=== PATIENT | male | born 1985 | race Caucasian/White ===

== ENCOUNTER 2019-09-07 13:41 | Emergency (ER) | payer OTHER ==
[~2019-09-07] VITALS: Ht 182.9 cm; Wt 104.3 kg
[2019-09-07 14:34] LABS: ABSOLUTE BASOPHILS 0.1 thou/uL (0.0-0.2); ABSOLUTE EOSINOPHILS 0.1 thou/uL (0.0-0.7); ABSOLUTE LYMPHOCYTES 2.1 thou/uL (0.8-5.3); ABSOLUTE MONOCYTES 0.4 thou/uL (0.0-1.2); ABSOLUTE NEUTROPHILS 4.7 thou/uL (1.6-8.1); BASOPHILS 0.8 %; EOSINOPHILS 1.7 %; HEMATOCRIT 44.6 % (42.0-52.0); HEMOGLOBIN 15.7 gm/dL (14.0-18.0); LYMPHOCYTES 28.6 %; MCH 29.2 pg (26.0-34.0); MCHC 35.3 g/dL (28.0-37.0); MCV 82.7 fL (80.0-100.0); MONOCYTES 5.4 %; MPV 8.8 fl. (7.2-11.1); NUCLEATED RBCS 0 /100WBC; PLATELET COUNT* 170 thou/uL (150-400); POLYS 63.5 %; RBC 5.39 mil/uL (4.50-6.00); RDW-CV 13.1 % (10.5-14.5); WBC 7.5 thou/uL (4.0-11.0)
[2019-09-07 14:40] LABS: CALCIUM 9.4 mg/dL (8.5-10.1); CREATININE 1.1 mg/dL (0.6-1.3)
[2019-09-07 14:54] LABS: ALBUMIN 4.6 g/dL (3.4-5.0); CK-MB MASS 1.7 ng/mL (<0.5-3.6); MAGNESIUM 1.9 mg/dL (1.8-2.4); TOTAL BILIRUBIN 0.5 mg/dL (<0.1-1.0); TOTAL PROTEIN 7.9 g/dL (6.4-8.2)
[2019-09-07 14:59] LABS: APTT 25.2 Seconds (25.0-31.3); INR 1.1; PROTIME 11.4 Seconds (9.20-11.50)
[2019-09-07 15:16] VITALS: BP 141/79
--- NOTE | 2019-09-07 15:50 | EKG ---
[place] [address] ELECTROCARDIOGRAM REPORT Name: BUD KHOURY Room: [facility]#: [id number] Admission: 09/07/19 Attend Phys: Discharge: 09/07/19 Date of : 85 Report #: [id number] THIS REPORT FOR: //name// [facility] ED Test Date: 2019-09-07 Test Time: 13:50:08 Pat Name: BUD KHOURY Department: Room: Gender: M [employer]: : 1985 Requested By: Anam Kaur Order Number: [id number] MD: Anderson Dickinson Measurements Intervals [place] Rate: 84 P: 44 MT: 196 QRS: 38 QRSD: 94 T: 6 QT: 357 QTc: 422 Interpretive Statements Sinus rhythm No previous ECG available for comparison Electronically Signed On 09-07-2019 15:50:19 LIBRARY TECHNICIAN by Anderson Diciknson [email or web address] <ELECTRONICALLY SIGNED> By: Anderson Dickinson MD, [facility] 09/07/19 1550 1350 1350 Anderson Dickinson MD, FACC /EPI
== END 2019-09-07 15:17 | disposition home or self-care (01) ==
LOC: M.ERS 13:41
PROVIDERS: Family Medicine
DX: R07.89 Other chest pain (principal); I10 Essential (primary) hypertension; Z88.5 Allergy status to narcotic agent